=== PATIENT | female | born 1985 | race Caucasian/White ===

== ENCOUNTER 2018-09-07 08:50 | Inpatient (IN) ==
--- NOTE | 2018-09-07 09:16 | P.HPOB ---
History of Present Illness Primary Care Physician: No Primary Care Physician History of Present Illness: Patient is a 33-year-old white female at 39 weeks who is a previous C- section x2 and presents for repeat tubal ligation. Patient has tubal papers signed and [facility], she understands tubal ligation that is considered permanent yet less 100% effective with a 1 and 300 failure rate and she accepts the risk and understands risk benefits of procedure. She had no complication with is done well baby is active and no other obstetric problems noted. OB history: x2for for breech presentation Uncomplicated pregnancies Medical history: None Surg hx: Jaw surgery Meds: vitamins Allergies: Sulfa drugs - Inpatient Certification I certify that the inpatient services were ordered in accordance with Medicare regulations governing the order. This includes certification that hospital inpatient services are reasonable and necessary and in the case of services not specified as inpatient-only under 42 CFR 419.22(n), that they are appropriately provided as inpatient services in accordance to with the 2-midnight benchmark under 43 CFR 412.3(e) Review of Systems All other systems reviewed negative except as stated in HPI Medications and Allergies Allergies Allergy/AdvReac Type Severity Reaction Status Date / Time Sulfa (Sulfonamide Allergy Severe Unverified 07/07/17 02:12 Antibiotics) Home Medications Medication Instructions Recorded Confirmed Type Multivitamins 09/07/18 History Vitamin C 09/07/18 History Exam Vital signs: Intake & Output 09/06/18 09/07/18 09/07/18 18:59 06:59 18:59 Weight 99.79 kg Narrative: GENERAL: Well-nourished, well-developed patient. SKIN: Warm and dry. HEAD: Normocephalic and atraumatic. EYES: No scleral icterus. No injection or drainage. ENT: No nasal drainage noted. Mucous membranes pink. Airway patent. NECK: Supple, trachea midline. No JVD. CARDIOVASCULAR: Regular rate and rhythm without murmurs, gallops, or rubs. RESPIRATORY: Breath sounds equal bilaterally. No accessory muscle use. BREASTS: Bilateral exam showed no masses , no retractions, no nipple discharge. ABDOMEN/GI: Abdomen soft, non-tender, bowel sounds present, no rebound, no guarding Gravid to [38-] weeks size Fundal Height: [-38] GENITOURINARY: External Genitalia: intact and normal in appearance BUS glands: [-] Cervix: [ post-] Dilatation: [1 Effacement: [thick-] Station: [-3] Presentation: [vtx-] Membranes: [intact ] Uterine Contractions: [none-] FHT's: Category: [1-] Baseline: [145-] Reactive: [R-] Variability: [mod-] Decels: [-0] EXTREMITIES: No cyanosis or edema. BACK: Nontender without obvious deformity. No CVA tenderness. NEUROLOGICAL: Awake and alert. Motor and sensory grossly within normal limits. Five out of 5 muscle strength in all muscle groups. Normal speech. Caprini VTE Risk Assessment Caprini VTE Risk Assessment: No/Low Risk (score <= 1) Caprini Risk Assessment Model: Point Value = 1 Point Value = 2 Point Value = 3 Point Value = 5 Age 41-60 Minor surgery BMI > 25 kg/m2 Swollen legs Varicose veins or History of unexplained or recurrent spontaneous Oral contraceptives or hormone replacement Sepsis (< 1 month) Serious lung disease, including pneumonia (< 1 month) Abnormal pulmonary function Acute myocardial infarction Congestive heart failure (< 1 month) History of inflammatory bowel disease Medical patient at bed rest Age 61-74 Arthroscopic surgery Major open surgery (> 45 min) Laparoscopic surgery (> 45 min) Malignancy Confined to bed (> 72 hours) Immobilizing plaster cast Central venous access Age >= 75 History of VTE Family history of VTE Factor V Leiden Prothrombin [id number] Lupus anticoagulant Anticardiolipin antibodies Elevated serum homocysteine Heparin-induced thrombocytopenia Other congenital or acquired thrombophilia Stroke (< 1 month) Elective arthroplasty Hip, pelvis, or leg fracture Acute spinal cord injury (< 1 month) Prophylaxis Regimen: Total Risk Factor Score Risk Level Prophylaxis Regimen 0-1 Low Early ambulation 2 Moderate Order ONE of the following: *Sequential Compression Device (SCD) *Heparin 5000 units SQ BID 3-4 Higher Order ONE of the following medications: *Heparin 5000 units SQ TID *Enoxaparin/Lovenox 40 mg SQ daily (WT < 150 kg, CrCl > 30 mL/min) *Enoxaparin/Lovenox 30 mg SQ daily (WT < 150 kg, CrCl > 10-29 mL/min) *Enoxaparin/Lovenox 30 mg SQ BID (WT < 150 kg, CrCl > 30 mL/min) AND/OR *Sequential Compression Device (SCD) 5 or more Highest Order ONE of the following medications: *Heparin 5000 units SQ TID (Preferred with Epidurals) *Enoxaparin/Lovenox 40 mg SQ daily (WT < 150 kg, CrCl > 30 mL/min) *Enoxaparin/Lovenox 30 mg SQ daily (WT < 150 kg, CrCl > 10-29 mL/min) *Enoxaparin/Lovenox 30 mg SQ BID (WT < 150 kg, CrCl > 30 mL/min) AND *Sequential Compression Device (SCD) Assessment and Plan - Diagnosis (1) 39 weeks gestation of Code(s): Z3A.39 - 39 weeks gestation of Status: Acute (2) Previous section complicating Code(s): O34.219 - Maternal care for unspecified type scar from previous delivery Status: Acute Plan: Patient is a 33-year-old white female at 39 weeks who is a previous C- section x2 and presents for repeat tubal ligation. -Preop orders in -Ancef 2 g preop -GBS negative, labs reviewed -Follow-up preop lab work -Will sign and fax tubal papers
[2018-09-07] MEDS ORDERED: ceFAZolin 2 GM Premix Inj 2 GM/50 ML PIGGYBACK IV.SIG PRN (09:17)
[2018-09-07] MEDS ORDERED: Citric Acid/Sodium Citrate Liq 30 ML UDC PO SCH (09:30)
[2018-09-07] MEDS ORDERED: Morphine Sulfate PF Inj 5 MG/10 ML Ampul ONE (10:06)
[2018-09-07 10:23] LABS: Baso % (Auto) 0.2 % (0.0-2.0); Eos # (Auto) 0.1 th/mm3 (0.0-0.4); Eos % (Auto) 0.6 % (0.0-4.0); Hematocrit 41.2 % (35.0-46.0); Lymph # (Auto) 2.4 th/mm3 (1.0-4.8); Lymph % (Auto) 22.3 % (9.0-44.0); Mean Corpuscular HGB Conc 33.9 % (32.0-36.0); Mean Corpuscular Hemoglobin 31.6 pg (27.0-34.0); Mean Corpuscular Volume 93.3 fL (80.0-100.0); Mean Platelet Volume 10.1 fL (7.0-11.0); Neut # (Auto) 7.3 th/mm3 (1.8-7.7); Neut % (Auto) 67.9 % (16.0-70.0); Platelet Count 161 th/mm3 (150-450); Red Blood Count 4.41 mil/mm3 (4.00-5.30); Red Cell Distribution Width 13.6 % (11.6-17.2); White Blood Count 10.8 th/mm3 (4.0-11.0)
[2018-09-07 10:28] LABS: Amphetamine Screen,Urine Neg (Neg); Barbiturate Screen,Urine Neg (Neg); Cannabinoid Screen,Urine Neg (Neg); Cocaine Screen,Urine Neg (Neg)
[2018-09-07] MEDS ORDERED: Ketorolac Inj 30 MG/ML (IVP) Vial IV.PUSH ONE (10:34)
[2018-09-07] MEDS ORDERED: Phenylephrine/NS 1000 MCG/10ML Syringe IV.PUSH ONE (10:34)
[2018-09-07 10:35] LABS: Amorphous Sediment,Urine Rare /hpf; Bacteria,Urine Occasional /hpf; Bilirubin,Urine Negative (Negative); Calcium Oxalate Crystals,Urine Occasional /hpf; Color,Urine Yellow (Yellw/Straw); Glucose,Urine (UA) Negative (Negative); Leukocyte Esterase,Urine Negative (Negative); Mucus,Urine Few /lpf (Occasional); Nitrite,Urine Negative (Negative); Specific Gravity,Urine 1.017 (1.002-1.035); Squamous Epithelial Cell,Urine <1 /hpf (0-5)
[2018-09-07 10:37] LABS: Clarity,Urine Clear (Clear)
[2018-09-07] MEDS ORDERED: Naloxone Inj 0.4 MG/ML Vial IV.PUSH PRN (10:40)
[2018-09-07 10:44] LABS: Opiate Screen,Urine Neg (Neg)
[2018-09-07] MEDS ORDERED: Simethicone 80 MG Chew Tablet PO PRN (12:05)
[2018-09-07] MEDS ORDERED: Oxytocin 30 Units/500ml Premix 30 UNITS/500 ML BAG IV.SIG ONE (12:30)
--- NOTE | 2018-09-07 13:07 | P.OP ---
- Preoperative Diagnosis (1) Previous section complicating (2) 39 weeks gestation of (3) Encounter for sterilization - Postoperative Diagnosis (1) Previous section complicating (2) 39 weeks gestation of (3) Encounter for sterilization Date of procedure: 09/07/18 Procedure: Repeat lower uterine transverse section bilateral tubal sterilization Anesthesia: spinal Surgeon: Jenna Abreu MD Electric Spot Welder: Rose HARPER, PGY 3 Estimated blood loss (mL): 600 Pathology: none sent Operation and Findings: Patient presents for repeat delivery and tubal sterilization. Counseled regarding alternatives benefits complications including but not limited to risk of permanent injury to the bowel bladder nerve blood vessels ureters any structures in the abdomen or pelvis infection hemorrhage morbidity mortality related surgery under anesthesia related procedures even remote possibility of . Risk of injury reoperation risk anesthesia related complications hemorrhage 1-2 per thousand patients regardless of the method used tubes may reanastomosed and risk for ectopic . Subsequently taken to the OR after informed consent obtained prepped and draped in normal sterile fashion after spinal analgesia was found to be adequate timeout was performed. Received preop antibiotics. Counseling incision was made to the skin carried into the underlying layer of fascia the fascia was incised in the midline sharply dissected laterally sharply with Jeimy clamp and scalp. The fascia was noted to be densely adherent in the midline subsequently tented with Allis clamps x2 and entered into sharply with blade. The bladder was noted to be densely adherent subsequently to create the bladder flap point approximately 1 cm above the vesicouterine peritoneum and gently created bladder flap. Bladder blade was subsequently placed followed by a transverse incision on the uterus note that the lower uterine segment was quite noted to be thin with almost a window formation noted. The incision in the midline extended laterally digitally amniotomy clear fluid. Delivery of the vertex nares and mouth were bulb suctioned followed by the delivery of the remainder of the body. Delivered without incident a viable male weight 8 pounds 14 ounces Apgars 7 and 8. Delayed cord clamping infant was subsequently handed to the waiting neonatology team. Cord blood was collected the placenta was manually removed the uterus was externalized cleared of all clot and debris uterine incision was closed using 1-0 chromic in a running locked fashion followed by second imbricating Lambert suture. A third suture was placed to reinforce the lower uterine segment. Good hemostasis was noted. Attention was then turned to the patient's right tube which was followed out to the fimbriated end and subsequently ligated x2 with good blanching good knuckling of 2 noted this was done with plain gut the tube was subsequently excised superior to the not note there was some bleeding noted from the peritoneal edge of the tube which was also attached to an adhesion subsequently quickly identified and closed in a running locked fashion and then subsequently transfixed to the serosal surface of the ovary on the same side. The contralateral ovary was followed out to the fimbriated end as well subsequently Katya Clamp was grasped knuckle of tube followed by small hole created in the mesosalpinx followed by application of plain gut x2 with good blanching and knuckle of tube noted superior to the not subsequently the tube was excised in its entirety. The paracolic gutters were cleared of all clot and debris the posterior aspect of the uterus no pathology noted both adnexa noted to be within normal. Uterus was repositioned in the pelvic abdominal cavity. All incisions were evaluated x3 noted to have good hemostasis. At this time proceeded to close the fascia with 1 PDS. Continuous fashion. Subcutaneous bleeding was noted to be minimal subsequently the skin was closed with Monocryl on a Andrade needle. Patient tolerated procedure well sponge lap needle counts correct x2 mother and baby in stable condition.
[2018-09-07] MEDS ORDERED: Oxytocin 30 Units/500ml Premix 30 UNITS/500 ML BAG IV.SIG PRN (17:05)
[2018-09-07] MEDS: ceFAZolin Inj 2,000 MG in Sodium Chlor 0.9% Inj 80 ML IV.SIG SCH (18:29)
[2018-09-08] MEDS: ceFAZolin Inj 2,000 MG in Sodium Chlor 0.9% Inj 80 ML IV.SIG SCH (03:06)
[2018-09-08] MEDS: Senna/Docusate Sodium 8.6/50 MG Tablet PO PRN ×2 (05:12→18:22)
[2018-09-08 05:43] LABS: Baso % (Auto) 0.2 % (0.0-2.0); Eos % (Auto) 0.2 % (0.0-4.0); Hematocrit 31.2 % (35.0-46.0); Hemoglobin 10.6 gm/dL (11.6-15.3); Lymph # (Auto) 2.4 th/mm3 (1.0-4.8); Lymph % (Auto) 18.8 % (9.0-44.0); Mean Corpuscular Hemoglobin 31.9 pg (27.0-34.0); Mean Platelet Volume 9.6 fL (7.0-11.0); Mono # (Auto) 1.1 th/mm3 (0.0-0.9); Mono % (Auto) 8.9 % (0.0-8.0); Neut # (Auto) 9.2 th/mm3 (1.8-7.7); Neut % (Auto) 71.9 % (16.0-70.0); Platelet Count 131 th/mm3 (150-450); Red Blood Count 3.32 mil/mm3 (4.00-5.30); Red Cell Distribution Width 13.6 % (11.6-17.2); White Blood Count 12.8 th/mm3 (4.0-11.0)
--- NOTE | 2018-09-08 08:18 | P.PNOB ---
Subjective Post op day: 1 Interval history: Pt seen and examined bedside this morning. Drinking liquids without difficulty. Ambulating and voiding well. Denies any CP/SOB/dizzyness. No calf tenderness. pain well-controlled on current medications. Has not passed gas. Objective Vital Signs/I&O: Vital Signs 09/07/18 09:15 09/07/18 12:00 09/07/18 12:15 Temperature 98.2 F 97.5 F L Pulse Rate 124 H 91 H 94 H Respiratory Rate 16 18 18 Blood Pressure 128/50 L 110/65 118/71 09/07/18 12:30 09/07/18 12:45 09/07/18 13:00 Temperature Pulse Rate 90 92 H 87 Respiratory Rate 18 18 18 Blood Pressure 120/70 117/78 119/66 09/07/18 14:06 09/07/18 19:52 09/07/18 23:52 Temperature 97.8 F 98.3 F 98.2 F Pulse Rate 77 91 H 80 Respiratory Rate 16 18 18 Blood Pressure 130/80 128/75 121/70 09/08/18 03:59 Temperature 97.8 F Pulse Rate 74 Respiratory Rate 18 Blood Pressure 113/71 Intake & Output 09/07/18 09/08/18 09/08/18 18:59 06:59 18:59 Intake Total 100 / 100 Balance 100 / 100 Weight 99.79 kg Intake: IV 100 / 100 Ancef Inj 2,000 MG In NS Inj 80 100 / 100 ML @ 200 mls/hr IV.SIG Q8H FOR[facility], [facility]–1983 Rx#:[id number] Result Diagrams: 09/08/18 05:11 Objective Remarks: GENERAL: Well-nourished, well-developed patient. CARDIOVASCULAR: Regular rate and rhythm without murmurs, gallops, or rubs. RESPIRATORY: Breath sounds equal bilaterally. No accessory muscle use. ABDOMEN/GI: Abdomen soft, non-tender, bowel sounds present. Incision: Clean, dry and intact. Fundus: Firm, non-tender at umbilicus. pressure dressing in place GENITOURINARY: Light to moderate bleeding. EXTREMITIES: No cyanosis or edema, non-tender, without signs of DVT. Medications and IVs: Active Medications Citric Acid/Sodium Citrate (Sodium Citrate/Citric Acid Liq) 30 ml PO CORRECTIVE AND MANUAL ARTS THERAPIST [facility], [facility]1983 Stop: 09/11/18 09:29 Last Admin: 09/07/18 10:09 Dose: 30 ml Diphenhydramine HCl (Benadryl) 50 mg PO Q6H PRN PRN Reason: MILD TO MODERATE ITCHING Stop: 09/08/18 10:39 Last Admin: 09/07/18 14:14 Dose: 50 mg Diphtheria/Pertussis/Tetanus Vacc (Boostrix Vaccine Inj) 0.5 ml IM .ONCE ONE Stop: 09/08/18 16:01 Cefazolin Sodium/Dextrose (Ancef 2 Gm Premix Inj) 2 gm in 50 mls @ 100 mls/hr IV.SIG CORRECTIVE AND MANUAL ARTS THERAPIST PRN PRN Reason: surgery Stop: 09/11/18 09:16 Last Admin: 09/07/18 10:09 Dose: 100 mls/hr Lactated Ringer's (Lr 1000 Ml Inj) 1,000 mls @ 100 mls/hr IV.CONT .Q10H CHRISTIAN Stop: 09/08/18 13:04 Last Admin: 09/08/18 07:47 Dose: Not Given Oxytocin (Pitocin 30 Units/Ns 500 Ml Premix) 30 units in 500 mls @ 100 mls/hr IV.SIG UNSCH PRN PRN Reason: Heavy bleeding Ibuprofen (Motrin) 800 mg PO Q8H PRN PRN Reason: cramping Last Admin: 09/08/18 00:39 Dose: 800 mg Ketorolac Tromethamine (Toradol Inj) 30 mg IM Q6H PRN PRN Reason: SEE LABEL COMMENTS Stop: 09/12/18 12:04 Measles/Mumps/Rubella Vaccine Live (M-M-R Ii Vaccine Inj) 0.5 ml SQ .ONCE ONE Stop: 09/08/18 16:01 Miscellaneous Information (Misc Nursing Information) 1 each OTHER UNSCH PRN PRN Reason: SEE LABEL COMMENTS Stop: 09/08/18 10:39 Miscellaneous Information (Misc Nursing Information) 1 each OTHER UNSCH PRN PRN Reason: SEE LABEL COMMENTS Stop: 09/08/18 10:39 Naloxone HCl (Narcan Inj) 0.4 mg IV.PUSH UNSCH PRN PRN Reason: SEE LABEL COMMENTS Stop: 09/08/18 10:39 Ondansetron HCl (Zofran Inj) 4 mg IV.PUSH Q6H PRN PRN Reason: NAUSEA OR VOMITING Oxycodone/Acetaminophen (Percocet 5/325 Mg) 1 tab PO Q4H PRN PRN Reason: PAIN SCALE 3 TO 5 Last Admin: 09/08/18 00:40 Dose: 1 tab Oxycodone/Acetaminophen (Percocet 5/325 Mg) 2 tab PO Q4H PRN PRN Reason: PAIN SCALE 6 TO 10 Last Admin: 09/08/18 05:12 Dose: 2 tab Senna/Docusate Sodium (Aisha-Colace) 2 tab PO Q12H PRN PRN Reason: CONSTIPATION Last Admin: 09/08/18 05:12 Dose: 2 tab Simethicone (Mylicon Chew) 80 mg PO QID PRN PRN Reason: FLATULENCE Sodium Chloride (Ns Flush) 2 ml IV.FLUSH BID CHRISTIAN Last Admin: 09/08/18 07:46 Dose: Not Given Sodium Chloride (Ns Flush) 2 ml IV.FLUSH UNSCH PRN PRN Reason: FLUSH AFTER USING IV ACCESS Assessment and Plan - Diagnosis (1) Previous section complicating Code(s): O34.219 - Maternal care for unspecified type scar from previous delivery Status: Acute (2) delivery delivered Code(s): O82 - Encounter for delivery without indication Status: Acute Plan: Patient is a 33-year-old white female at 39 weeks, previous x2 , s/p repeat c/s with BTL. - Cont to advance diet - Cont to encourage ambulation - h&H stable - Contraception: s/p BTL
[2018-09-08] MEDS ORDERED: Measles/Mumps/Rubella Vaccine Inj 0.5 ML Vial SQ ONE (16:00)
[2018-09-08] MEDS ORDERED: Diphtheria/Tetanus/Pertussis Vaccine Inj 0.5 ML Syringe IM ONE (16:00)
[2018-09-08 21:55] VITALS: RESP 18
[2018-09-09] MEDS: Senna/Docusate Sodium 8.6/50 MG Tablet PO PRN (03:58)
[2018-09-09 07:16] VITALS: BP 139/80; PULSE 67; TEMP 98.3
--- NOTE | 2018-09-09 09:50 | P.PNOB ---
Subjective Post op day: 2 Interval history: Pt seen and examined bedside this morning. Eating and drinking well. Ambulating and voiding well. Denies any CP/SOB/dizziness. Decreased bleeding today. No calf tenderness. Pain well-controlled on current medications. Has been passing gas, however has not yet had a bowel movement. Objective Vital Signs/I&O: Vital Signs 09/08/18 20:00 09/09/18 07:00 Temperature 98.0 F 98.3 F Pulse Rate 83 67 Respiratory Rate 18 18 Blood Pressure 126/67 139/80 Result Diagrams: 09/08/18 05:11 Objective Remarks: General: Alert, well appearing, in no acute distress Skin: Warm and dry HEENT: Atraumatic. Moist mucus membranes Cardiac: Regular rate and rhythm without murmur Pulmonary: No increased work of breathing. Clear to auscultation bilaterally with good air movement. Abdominal: Non-tender. uterus firm and below the umbilicus Extremities: 2+ pedal pulses, no edema, no calf tenderness Incision: Clean dry and intact. Mild ecchymosis superior to the incision and significant ecchymosis extending inferior to the incision without hematoma. Medications and IVs: Active Medications Citric Acid/Sodium Citrate (Sodium Citrate/Citric Acid Liq) 30 ml PO ARTS ADMINISTRATOR OR MANAGER CHRISTIAN Stop: 09/11/18 09:29 Last Admin: 09/07/18 10:09 Dose: 30 ml Cefazolin Sodium/Dextrose (Ancef 2 Gm Premix Inj) 2 gm in 50 mls @ 100 mls/hr IV.SIG ARTS ADMINISTRATOR OR MANAGER PRN PRN Reason: surgery Stop: 09/11/18 09:16 Last Admin: 09/07/18 10:09 Dose: 100 mls/hr Oxytocin (Pitocin 30 Units/Ns 500 Ml Premix) 30 units in 500 mls @ 100 mls/hr IV.SIG UNSCH PRN PRN Reason: Heavy bleeding Ibuprofen (Motrin) 800 mg PO Q8H PRN PRN Reason: cramping Last Admin: 09/09/18 03:58 Dose: 800 mg Ketorolac Tromethamine (Toradol Inj) 30 mg IM Q6H PRN PRN Reason: SEE LABEL COMMENTS Stop: 09/12/18 12:04 Ondansetron HCl (Zofran Inj) 4 mg IV.PUSH Q6H PRN PRN Reason: NAUSEA OR VOMITING Oxycodone/Acetaminophen (Percocet 5/325 Mg) 1 tab PO Q4H PRN PRN Reason: PAIN SCALE 3 TO 5 Last Admin: 09/08/18 00:40 Dose: 1 tab Oxycodone/Acetaminophen (Percocet 5/325 Mg) 2 tab PO Q4H PRN PRN Reason: PAIN SCALE 6 TO 10 Last Admin: 09/09/18 08:34 Dose: 2 tab Senna/Docusate Sodium (Aisha-Colace) 2 tab PO Q12H PRN PRN Reason: CONSTIPATION Last Admin: 09/09/18 03:58 Dose: 2 tab Simethicone (Mylicon Chew) 80 mg PO QID PRN PRN Reason: FLATULENCE Sodium Chloride (Ns Flush) 2 ml IV.FLUSH BID CHRISTIAN Last Admin: 09/09/18 08:07 Dose: Not Given Sodium Chloride (Ns Flush) 2 ml IV.FLUSH UNSCH PRN PRN Reason: FLUSH AFTER USING IV ACCESS Assessment and Plan - Diagnosis (1) Previous section complicating Code(s): O34.219 - Maternal care for unspecified type scar from previous delivery Status: Acute (2) delivery delivered Code(s): O82 - Encounter for delivery without indication Status: Acute - Plan 33 y/o female who is POD# 2 s/p CXN and bilateral tubal ligation. (Previous C- section x2) -Continue routine care -Eating and drinking well today -Percocet and Motrin PRN pain. -Encouraged OOB. Advised pelvic rest for 6 wks. Will need a f/u appt. in 1 wk for incision check -Anticipate DC home today Care discussed with: Dr. Crisostomo Discharge Planning: Patient is a 33-year-old white female at 39 weeks, previous x2 , s/p repeat c/s with BTL. -Eating and drinking well -Cont to encourage ambulation - h&H stable -Contraception: s/p BTL
== END 2018-09-09 13:47 | disposition home or self-care (01) ==
LOC: H2E 08:50 → H1EA 14:55
PROVIDERS: ADMIT Obstetrics & Gynecology; ATTEND Obstetrics & Gynecology